=== PATIENT | female | born 1940 | race Caucasian/White ===

== ENCOUNTER 2017-06-20 12:57 | Outpatient (CLI) | payer MEDICARE ==
[2017-06-20 13:01] LABS: Bilirubin Negative (Negative); Blood, Urine Large (Negative); Clarity Cloudy (Clear); Glucose, Urine (Dipstick) Negative (Negative); Leukocyte Moderate (Negative); Nitrite Negative (Negative); Protein, Urine (Dipstick) Trace mg/dL (Neg-Trace); Specific Gravity, Urine 1.015 (1.005-1.030); Urobilinogen 0.2 mg/dL (0.2-1.0)
[2017-06-20 13:02] LABS: Bacteria/HPF 1+ HPF (None Seen); Squamous Epithelial None Seen HPF (0-3); WBC/HPF 21-50 HPF (0-3)
== END 2017-06-20 12:58 | disposition home or self-care (01) ==
LOC: MADLAB 12:57
PROVIDERS: ATTEND Urology
DX: N39.0 Urinary tract infection, site not specified (principal)
CPT/HCPCS: 81001; 87086

== ENCOUNTER 2017-06-20 13:29 | Emergency (ER) | payer MEDICARE ==
[2017-06-20] MEDS ORDERED: Nitrofurantoin Monohyd/M-Cryst 100 MG CAP ONE (14:43)
== END 2017-06-20 14:51 | disposition home or self-care (01) ==
LOC: MADERS 13:29
DX: N39.0 Urinary tract infection, site not specified (principal)
CPT/HCPCS: 81001; 87086; 99283

== ENCOUNTER 2017-08-21 15:10 | Emergency (ER) | payer MEDICARE | END 2017-08-21 15:30 | disposition home or self-care (01) | LOC: MADERS 15:10 | DX: G20 Parkinson's disease (principal); I10 Essential (primary) hypertension; E03.9 Hypothyroidism, unspecified; Z79.82 Long term (current) use of aspirin; Z79.899 Other long term (current) drug therapy | CPT/HCPCS: 99283 ==